=== PATIENT | male | born 2000 | race Caucasian/White ===

== ENCOUNTER 2021-06-06 20:34 | Emergency (ER) | payer BC ==
[~2021-06-06] VITALS: Ht 185.4 cm; Wt 90.9 kg
[2021-06-06 20:49] VITALS: TEMP 97.2
[2021-06-06] MEDS ORDERED: CEPHALEXIN500 M1 PO (21:51)
[2021-06-06 22:05] VITALS: BP 140/88; PULSE 80
== END 2021-06-06 22:05 | disposition home or self-care (01) ==
LOC: COL.ER 20:34
DX: S81.811A Laceration without foreign body, right lower leg, initial encounter (principal); Z23 Encounter for immunization; W22.8XXA Striking against or struck by other objects, initial encounter; Y92.481 Parking lot as the place of occurrence of the external cause

== ENCOUNTER → 2021-06-17 | Outpatient (CLI) | payer BC ==
[~2021-06-17] MED LIST: CEPHALEXIN500 M1 PO
[2021-06-17 15:46] VITALS: BP 131/82; PULSE 79; TEMP 97.5
== END ==
LOC: COL.ER 15:30
DX: Z48.02 Encounter for removal of sutures (principal)